=== PATIENT | female | born 1995 | race Caucasian/White ===

== ENCOUNTER 2021-05-24 23:09 | Emergency (ER) | payer OTHER ==
[~2021-05-24] VITALS: Ht 170.2 cm; Wt 65.9 kg
[2021-05-25 05:30] VITALS: BP 153/82
== END 2021-05-25 06:01 | disposition home or self-care (01) ==
LOC: M ED 23:09
DX: B27.90 Infectious mononucleosis, unspecified without complication (principal); Z91.048 Other nonmedicinal substance allergy status